=== PATIENT | male | born 1945 | race Caucasian/White ===

== ENCOUNTER 2022-06-26 19:06 | Emergency (ER) | payer BC ==
[~2022-06-26] VITALS: Ht 177.8 cm; Wt 84.8 kg
[2022-06-26] MEDS ORDERED: AMOCLA875 PO (20:39)
== END 2022-06-26 21:12 | disposition home or self-care (01) ==
LOC: ER 19:06
DX: S51.852A Open bite of left forearm, initial encounter (principal); W54.0XXA Bitten by dog, initial encounter
CPT/HCPCS: 90714; A9270